=== PATIENT | male | born 1955 | race Caucasian/White ===

== ENCOUNTER 2018-07-14 08:15 | Day surgery (SDC) | payer BC ==
[~2018-07-14 08:15] MED LIST: Lactated Ringers 1,000 ML IV SCH; Sodium Chloride 0.9% 10 ML Syringe FLUSH PRN; Sodium Chloride 0.9% 2.5 ML Syringe FLUSH PRN; ceFAZolin 2 GM in Premix Bag 1 BAG IV ONE
--- NOTE | 2018-07-14 08:53 | PCM.PREANE ---
Preanesthetic Assessment - Anesthesia/Transfusion/Family Hx Anesthesia History: Prior Anesthesia Without Reaction Family History of Anesthesia Reaction: No Transfusion History: No Prior Transfusion(s) - Review of Systems General: No Symptoms Pulmonary: No Symptoms Cardiovascular: No Symptoms Gastrointestinal: No Symptoms Neurological: No Symptoms Other: Reports: None - Physical Assessment NPO Status Date: 07/13/18 NPO Status Time: 21:30 Height: 5 ft 10 in Weight: 95.254 kg ASA Class: 2 Mental Status: Alert & Oriented x3 Airway Class: Mallampati = 3 Dentition: Reports: Partial (upper and lower) Thyro-Mental Finger Breadths: 2 Mouth Opening Finger Breadths: 3 ROM/Head Extension: Full Lungs: Clear to Auscultation, Normal Respiratory Effort Cardiovascular: Regular Rate, Regular Rhythm - Allergies Allergies/Adverse Reactions: Allergies Allergy/AdvReac Type Severity Reaction Status Date / Time adhesive Allergy Rash Verified 07/10/18 11:27 gold simpson powder Allergy Hives Uncoded 07/10/18 11:27 - Acknowledgements Anesthesia Type Planned: General Anesthesia (LMA) Pt an Appropriate Candidate for the Planned Anesthesia: Yes Alternatives and Risks of Anesthesia Discussed w Pt/Guardian: Yes Pt/Guardian Understands and Agrees with Anesthesia Plan: Yes PreAnesthesia Questionnaire HEENT History: Reports: Other (See Below) Other HEENT History: uses reading glasses, has upper and lower dentures Cardiovascular History: Reports: None Respiratory History: Reports: Other (See Below) Other Respiratory History: currently has colon cancer metastisized to lungs Gastrointestinal History: Reports: Other (See Below) Other Gastrointestinal History: hx of colon cancer Genitourinary History: Reports: None Musculoskeletal History: Reports: Fracture Other Musculoskeletal History: left ankle Neurological History: Reports: None Psychiatric History: Reports: Depression Endocrine/Metabolic History: Reports: Obesity/BMI 30+ Hematologic History: Reports: None Immunologic History: Reports: None Oncologic (Cancer) History: Reports: Colon, Lung Other Oncologic History: hx of colon cancer- currently metastisized to lung Dermatologic History: Reports: None - Past Surgical History Head Surgeries/Procedures: Reports: None Cardiovascular Surgical History: Reports: Other (See Below) Other Cardiovascular Surgeries/Procedures: previous port-a-cath insertion and removal GI Surgical History: Reports: Appendectomy, Colon Other GI Surgeries/Procedures: Hx of low anterior colon resection with illeostomy- reversal of illeostomy Musculoskeletal Surgical History: Reports: ORIF Other Musculoskeletal Surgeries/Procedures:: hx of ORIF ankle and hand- hardware in ankle Oncologic Surgical History: Reports: Other (See Below) Other Oncologic Surgeries/Procedures: low anterior colon resection - SUBSTANCE USE Smoking Status *Q: Never Smoker Recreational Drug Use History: No - HOME MEDS Home Medications: Home Meds . [No Known Home Meds] 07/10/18 [History] - CURRENT (IN HOUSE) MEDS Current Meds: Current Medications Lactated Ringer's (Ringers, Lactated) 1,000 mls @ 125 mls/hr IV ASDIRECTED GEOFF Sodium Chloride (Saline Flush) 10 ml FLUSH ASDIRECTED PRN PRN Reason: Keep Vein Open Sodium Chloride (Saline Flush) 2.5 ml FLUSH ASDIRECTED PRN PRN Reason: Keep Vein Open Discontinued Medications Cefazolin Sodium/Dextrose 2 gm (/ Premix) 50 mls @ 100 mls/hr IV ONETIME ONE Stop: 07/13/18 12:40
[2018-07-14] MEDS ORDERED: fentaNYL 100 MCG/2 ML SDV ONE (09:47)
[2018-07-14] MEDS ORDERED: Midazolam 1 MG/ML 2 ML SDV ONE (09:47)
[2018-07-14] MEDS ORDERED: Propofol 200 MG/20 ML SDV ONE (09:47)
[2018-07-14] MEDS ORDERED: Ketorolac 30 MG/ML SDV ONE (09:48)
[2018-07-14] MEDS ORDERED: Glycopyrrolate 0.2 MG/ML SDV ONE (09:48)
[2018-07-14] MEDS ORDERED: Ondansetron 4 MG/2 ML SDV ONE (09:48)
[2018-07-14] MEDS ORDERED: Lidocaine 2% 5 ML SDV ONE (09:48)
[2018-07-14] MEDS ORDERED: ceFAZolin 1 GM Vial ONE (10:14)
[2018-07-14] MEDS ORDERED: Sodium Chloride 0.9% 20 ML ONE (10:14)
[2018-07-14] MEDS ORDERED: Heparin Sodium 100 Units/ML 3 ML Syringe ONE (10:53)
[2018-07-14] MEDS ORDERED: Octyl 2-Cyanoacrylate 1 Tube ONE (10:53)
[2018-07-14] MEDS ORDERED: Bupivacaine 0.5% 10 ML SDV ONE (10:53)
[2018-07-14] MEDS ORDERED: Lidocaine 1% 20 ML MDV ONE (10:54)
[2018-07-14] MEDS ORDERED: Iopamidol 408 MG/ML 50 ML SDV ONE (10:54)
[2018-07-14] MEDS ORDERED: Phenylephrine/Normal Saline 100 MCG/ML 10 ML Syringe ONE (11:36)
--- NOTE | 2018-07-14 12:17 | PCM.OPNOTE ---
- General Post-Op/Procedure Note Date of Surgery/Procedure: 07/14/18 Operative Procedure(s): LIJ port a cath placement Findings: LIJ port Pre Op Diagnosis: Colon cancer Post-Op Diagnosis: same Anesthesia Technique: General ET Tube, General LMA Primary Surgeon: Ethel Marino Condition: Good
--- NOTE | 2018-07-14 12:41 | PCM.POSTAN ---
POST ANESTHESIA ASSESSMENT - MENTAL STATUS Mental Status: Alert, Oriented - RESPIRATORY Respiratory Status: Respiratory Rate WNL, Airway Patent, O2 Saturation Stable - CARDIOVASCULAR CV Status: Pulse Rate WNL, Blood Pressure Stable - GASTROINTESTINAL GI Status: No Symptoms - PAIN Pain Score: 0 - POST OP HYDRATION Hydration Status: Adequate & Stable
--- NOTE | 2018-07-14 12:48 | PCM48HPAN ---
Post Anesthesia Note - EVALUATION WITHIN 48HRS OF ANESTHETIC Vital Signs in Normal Range: Yes Patient Participated in Evaluation: Yes Respiratory Function Stable: Yes Airway Patent: Yes Cardiovascular Function Stable: Yes Hydration Status Stable: Yes Pain Control Satisfactory: Yes Nausea and Vomiting Control Satisfactory: Yes Mental Status Recovered: Yes Resp Rate: 11
--- NOTE | 2018-07-14 13:53 | CR ---
EXAM DATE: 07/14/18 PATIENT'S AGE: 63 Patient: ALYX MORALEZ Facility: [place], [place] Site . Site : 1955 Study: XRay Chest [id number]/21/2018 12:52:52 PM Ordering Physician: Jamila Davenport Final Report: INDICATION: Port-A-Cath placement. TECHNIQUE: Portable chest. IMPRESSION: Left upper 1.6 centimeter and left mid 2.2 centimeter left-sided lung nodules are present. A left Port-A-Cath is present. The central venous line tip is in the superior vena cava. Of note, the very superior portion of the catheter near the entry to the jugular vein tunneled portion of the catheter is not completely included on the radiograph. No pneumothorax. Normal heart size. Pulmonary nodules are new since previous chest radiograph November 2016 and follow up is suggested. Consider CT scan of the chest if this has not already been performed or if the patient does not have a known underlying malignancy. Dictated by Manuel Bae MD @ Jul 14 2018 12:53PM (Electronic Signature) Report Signed by Proxy. JOAQUIN
[2018-07-14 14:17] VITALS: BP 134/90
--- NOTE | 2018-07-15 08:55 | OR ---
SURGEON: MANISH LINK MD DATE OF PROCEDURE: 07/14/2018 PREOPERATIVE DIAGNOSIS: Colon cancer. POSTOPERATIVE DIAGNOSIS: Colon cancer. PROCEDURE PERFORMED: Left internal jugular Port-A-Cath placement. ANESTHESIA: General endotracheal anesthesia. FLUIDS: See anesthesia record. ESTIMATED BLOOD LOSS: 5 mL. COMPLICATIONS: None. INDICATIONS: The patient is a 63-year-old male with no metastatic colon cancer. We discussed the need for Port-A-Cath. I discussed the procedure with the patient and his family. I discussed the expected perioperative course as well as the risks including bleeding, infection, or damage to surrounding structures including hemothorax or pneumothorax. The patient verbalized understanding and wishes to proceed. PROCEDURE IN DETAIL: The patient was brought to the operating room placed on the OR table in supine position. A time-out was completed verifying the patient's name, age, date of , allergies, and procedure to be performed. An ultrasound was brought into the field and anatomy of the left side of the neck was verified. I was able to clearly see the left internal jugular vein and associated carotid artery. The general LMA anesthesia was induced. The patient's arms were tucked at his sides and a shoulder roll placed below his shoulders. Then, left neck and chest were prepped and draped in usual standard fashion. I anesthetized the left lower part of the neck and the left anterior chest wall with 1% lidocaine plain and 0.5% Marcaine plain. A sterile ultrasound probe was brought into the field, and I re-verified my vascular anatomy of the left lower part of the neck. A guide needle was placed under ultrasound guidance into the left internal jugular vein. Good return of venous blood was noted. A guidewire was placed down the needle and directed into the superior vena cava. Chest x-ray verified good placement of my guidewire. I then turned my attention to the anterior part of the left chest. Using a 15 blade, I made a 3 cm incision 2 fingerbreadths below the left lateral clavicle. Using cautery, I dissected down to the level of chest wall and created a subcutaneous pocket. Hemostasis was achieved using cautery. Using a tunneling needle, I then tunneled the catheter tubing from the port site on the chest up to the guidewire insertion site on the right side of the neck. Dilator and vascular sheaths were then placed over the guidewire, and using fluoroscopic guidance, I dilated up my venous tract. The guidewire and dilator were removed, and the catheter tubing placed down the vascular sheath. The vascular sheath was then pulled away. A x-ray was brought in and I pulled the tip of my catheter tubing into the proximal SVC. A good return of venous blood was noted at the distal end of the catheter tubing. The catheter tubing was then trimmed and placed on the Port-A-Cath device. The port was then placed in the subcutaneous pocket and secured to the chest wall with 2 interrupted 2-0 Prolene sutures on either side of the port. The port was accessed, and I had a good return of venous blood. It was then locked with 4 mL of heparinized saline. The anterior chest wall site was closed with interrupted 3-0 Vicryl in the subcutaneous fat and a running 4-0 Monocryl stitch within the skin. The skin at the neck insertion site was closed with interrupted 4-0 Monocryl. Dermabond and dressings were applied. The patient tolerated the procedure well and was transferred to the PACU in stable condition. A chest x-ray was obtained in PACU, which appeared normal. ERINN ALANIS /[id number]
== END 2018-07-14 14:30 | disposition home or self-care (01) ==
LOC: MW.SDS 08:15
PROVIDERS: ATTEND Surgery
DX: C18.9 Malignant neoplasm of colon, unspecified (principal); C78.00 Secondary malignant neoplasm of unspecified lung; E66.9 Obesity, unspecified; Z68.30 Body mass index [BMI] 30.0-30.9, adult
CPT/HCPCS: 36561; 71045; 76000; A9270; J0690; J1642; J1885; J2250; J2370; J2405; J2704; J3010; J3490; J7120; Q9966